=== PATIENT | female | born 1940 | race Caucasian/White ===

== ENCOUNTER 2022-06-21 15:11 | Inpatient (IN) | payer OTHER ==
[2022-06-21 21:52] LABS: BASO % 0.8 % (0-2.0); EOS % 0.9 % (0-4.5); HEMATOCRIT 37.3 % (32.4-45.2); HEMOGLOBIN 12.3 GM/dL (10.7-15.3); LYMPH % 15.2 % (8-40); MCH 28.7 pg (25.7-33.7); MCHC 33.1 g/dl (32.0-36.0); MEAN CELL VOLUME 86.8 fl (80-96); MEAN PLT VOLUME 8.9 fl (7.5-11.1); MONO % 9.6 % (3.8-10.2); NEUT % 73.5 % (42.8-82.8); PLATELET COUNT 179 10^3/uL (134-434); RDW 14.8 % (11.6-15.6)
[2022-06-21 22:07] LABS: CALCIUM 9.5 mg/dL (8.5-10.1)
[2022-06-21 22:08] LABS: ALBUMIN 3.4 g/dl (3.4-5.0); BLOOD UREA NITROGEN 19.8 mg/dL (7-18)
[2022-06-21 22:11] LABS: CREATININE 0.6 mg/dL (0.55-1.3)
[2022-06-21 22:12] LABS: BILIRUBIN,TOTAL 0.4 mg/dL (0.2-1); TOT PROT 6.2 g/dl (6.4-8.2)
[2022-06-22 03:25] VITALS: BMI 18.0
[2022-06-22] MEDS: INSULIN SLIDING SCALE (NOVOLOG) 1 VIAL SQ SCH ×4 (06:28→21:54)
[2022-06-22] MEDS: LEVOTHYROXINE NA 50 MCG TABLET (FP) PO SCH (06:28)
[2022-06-22] MEDS ORDERED: ALBUTEROL SO4 HFA INHALER IH PRN (08:34)
[2022-06-22] MEDS ORDERED: guaiFENesin/D-M SUGAR-FREE/ACLHOL-FREE 118 ML BOTTLE PO PRN (08:34)
[2022-06-22 09:30] LABS: BASO % 0.4 % (0-2.0); EOS % 1.2 % (0-4.5); HEMOGLOBIN 11.6 GM/dL (10.7-15.3); LYMPH % 15.8 % (8-40); MCH 28.4 pg (25.7-33.7); MCHC 32.3 g/dl (32.0-36.0); MEAN CELL VOLUME 88.1 fl (80-96); NEUT % 72.6 % (42.8-82.8); PLATELET COUNT 181 10^3/uL (134-434); RBC 4.09 M/mm3 (3.60-5.2); RDW 14.5 % (11.6-15.6); WHITE BLOOD COUNT 5.1 K/mm3 (4.0-10.0)
[2022-06-22 09:40] LABS: ACTIVATED PTT 29.7 SECONDS (25.2-36.5)
[2022-06-22 09:55] LABS: BLOOD UREA NITROGEN 24.8 mg/dL (7-18); CALCIUM 9.2 mg/dL (8.5-10.1); MAGNESIUM 1.6 mg/dL (1.8-2.4)
[2022-06-22 09:58] LABS: CREATININE 0.5 mg/dL (0.55-1.3); PHOSPHOROUS 2.7 mg/dL (2.5-4.9)
[2022-06-22 10:23] LABS: INR 1.17 (0.83-1.09); PROTHROMBIN TIME (PATIENT) 13.5 SEC (9.7-13.0)
[2022-06-22] MEDS: DOCUSATE SODIUM 100 MG CAPSULE (FP) PO SCH ×2 (10:56→21:47)
[2022-06-22] MEDS: MULTIVITAMINS (DAILY MVI) TABLET (FP) PO SCH (10:56)
[2022-06-22] MEDS: ASCORBIC ACID 500 MG TABLET (FP) PO SCH (10:56)
[2022-06-22] MEDS: FLUoxetine HCL 10 MG CAPSULE PO SCH (10:57)
[2022-06-22] MEDS: FERROUS SO4 325 MG TABLET (FP) PO SCH (10:57)
[2022-06-22] MEDS: ENALAPRIL MALEATE 10 MG TABLET PO SCH (10:57)
[2022-06-22] MEDS: SENNOSIDES 8.6MG TABLET (FP) PO SCH (10:57)
[2022-06-22] MEDS: ENOXAPARIN NA (PORCINE) 40 MG/0.4 ML DISP.SYRIN SQ SCH (10:57)
[2022-06-22] MEDS: PANTOPRAZOLE 20 MG TABLET PO SCH (10:57)
[2022-06-22] MEDS ORDERED: REMDESIVIR 200 MG in SODIUM CHLORIDE 250 ML IVPB ONE (11:00)
[2022-06-22] MEDS: FOLIC ACID 1 MG TABLET (FP) PO SCH (11:03)
[2022-06-22] MEDS: DEXAMETHASONE SOD PHOSPHATE 10 MG/1 ML VIAL IVPUSH SCH (11:04)
[2022-06-22] MEDS: CINACALCET HCL 30 MG TAB (FP) PO SCH (14:23)
[2022-06-22] MEDS: ATORVASTATIN CA 10 MG TABLET (FP) PO SCH (21:47)
[2022-06-23] MEDS: LEVOTHYROXINE NA 50 MCG TABLET (FP) PO SCH (06:20)
[2022-06-23] MEDS: INSULIN SLIDING SCALE (NOVOLOG) 1 VIAL SQ SCH ×4 (06:27→22:31)
[2022-06-23] MEDS: ENALAPRIL MALEATE 10 MG TABLET PO SCH (11:04)
[2022-06-23] MEDS: SENNOSIDES 8.6MG TABLET (FP) PO SCH (11:04)
[2022-06-23] MEDS: ASCORBIC ACID 500 MG TABLET (FP) PO SCH (11:04)
[2022-06-23] MEDS: DOCUSATE SODIUM 100 MG CAPSULE (FP) PO SCH ×2 (11:04→22:24)
[2022-06-23] MEDS: PANTOPRAZOLE 20 MG TABLET PO SCH (11:04)
[2022-06-23] MEDS: FERROUS SO4 325 MG TABLET (FP) PO SCH (11:04)
[2022-06-23] MEDS: MULTIVITAMINS (DAILY MVI) TABLET (FP) PO SCH (11:04)
[2022-06-23] MEDS: FOLIC ACID 1 MG TABLET (FP) PO SCH (11:04)
[2022-06-23] MEDS: ENOXAPARIN NA (PORCINE) 40 MG/0.4 ML DISP.SYRIN SQ SCH (11:05)
[2022-06-23] MEDS: FLUoxetine HCL 10 MG CAPSULE PO SCH (11:05)
[2022-06-23] MEDS: DEXAMETHASONE SOD PHOSPHATE 10 MG/1 ML VIAL IVPUSH SCH (11:05)
[2022-06-23] MEDS: CINACALCET HCL 30 MG TAB (FP) PO SCH (11:06)
[2022-06-23] MEDS: REMDESIVIR 100 MG in SODIUM CHLORIDE 250 ML IVPB SCH (11:06)
[2022-06-23] MEDS: ATORVASTATIN CA 10 MG TABLET (FP) PO SCH (22:24)
[2022-06-24] MEDS: LEVOTHYROXINE NA 50 MCG TABLET (FP) PO SCH (07:39)
[2022-06-24] MEDS: INSULIN SLIDING SCALE (NOVOLOG) 1 VIAL SQ SCH ×4 (07:44→23:42)
[2022-06-24] MEDS: FOLIC ACID 1 MG TABLET (FP) PO SCH (11:33)
[2022-06-24] MEDS: SENNOSIDES 8.6MG TABLET (FP) PO SCH (11:33)
[2022-06-24] MEDS: DOCUSATE SODIUM 100 MG CAPSULE (FP) PO SCH ×2 (11:33→23:15)
[2022-06-24] MEDS: PANTOPRAZOLE 20 MG TABLET PO SCH (11:34)
[2022-06-24] MEDS: MULTIVITAMINS (DAILY MVI) TABLET (FP) PO SCH (11:34)
[2022-06-24] MEDS: ENALAPRIL MALEATE 10 MG TABLET PO SCH (11:34)
[2022-06-24] MEDS: DEXAMETHASONE SOD PHOSPHATE 10 MG/1 ML VIAL IVPUSH SCH (11:36)
[2022-06-24] MEDS: FERROUS SO4 325 MG TABLET (FP) PO SCH (11:36)
[2022-06-24] MEDS: ENOXAPARIN NA (PORCINE) 40 MG/0.4 ML DISP.SYRIN SQ SCH (11:54)
[2022-06-24] MEDS: FLUoxetine HCL 10 MG CAPSULE PO SCH (12:04)
[2022-06-24] MEDS: ASCORBIC ACID 500 MG TABLET (FP) PO SCH (12:24)
[2022-06-24] MEDS: CINACALCET HCL 30 MG TAB (FP) PO SCH (12:25)
[2022-06-24] MEDS: REMDESIVIR 100 MG in SODIUM CHLORIDE 250 ML IVPB SCH (12:29)
[2022-06-24 13:27] LABS: BASO % 0.4 % (0-2.0); EOS % 1.8 % (0-4.5); HEMATOCRIT 37.7 % (32.4-45.2); HEMOGLOBIN 12.2 GM/dL (10.7-15.3); MCH 28.1 pg (25.7-33.7); MCHC 32.3 g/dl (32.0-36.0); MEAN PLT VOLUME 8.9 fl (7.5-11.1); MONO % 9.7 % (3.8-10.2); NEUT % 64.1 % (42.8-82.8); PLATELET COUNT 233 10^3/uL (134-434); RBC 4.34 M/mm3 (3.60-5.2); RDW 14.4 % (11.6-15.6); WHITE BLOOD COUNT 5.6 K/mm3 (4.0-10.0)
[2022-06-24 13:47] LABS: BLOOD UREA NITROGEN 21.9 mg/dL (7-18); CALCIUM 9.7 mg/dL (8.5-10.1)
[2022-06-24 13:50] LABS: CREATININE 0.5 mg/dL (0.55-1.3)
[2022-06-24] MEDS: ATORVASTATIN CA 10 MG TABLET (FP) PO SCH (23:15)
[2022-06-25] MEDS: INSULIN SLIDING SCALE (NOVOLOG) 1 VIAL SQ SCH ×4 (06:58→23:42)
[2022-06-25] MEDS: LEVOTHYROXINE NA 50 MCG TABLET (FP) PO SCH (06:59)
[2022-06-25 09:43] LABS: BASO % 0.4 % (0-2.0); EOS % 1.2 % (0-4.5); HEMATOCRIT 37.9 % (32.4-45.2); HEMOGLOBIN 12.2 GM/dL (10.7-15.3); LYMPH % 29.8 % (8-40); MCH 27.8 pg (25.7-33.7); MCHC 32.3 g/dl (32.0-36.0); MEAN CELL VOLUME 86.1 fl (80-96); MEAN PLT VOLUME 8.6 fl (7.5-11.1); MONO % 9.9 % (3.8-10.2); NEUT % 58.7 % (42.8-82.8); PLATELET COUNT 250 10^3/uL (134-434); RBC 4.39 M/mm3 (3.60-5.2); RDW 14.4 % (11.6-15.6); WHITE BLOOD COUNT 5.8 K/mm3 (4.0-10.0)
[2022-06-25 09:51] LABS: BLOOD UREA NITROGEN 22.4 mg/dL (7-18); CALCIUM 9.6 mg/dL (8.5-10.1)
[2022-06-25 09:54] LABS: CREATININE 0.5 mg/dL (0.55-1.3)
[2022-06-25] MEDS: ENOXAPARIN NA (PORCINE) 40 MG/0.4 ML DISP.SYRIN SQ SCH (10:41)
[2022-06-25] MEDS: DEXAMETHASONE SOD PHOSPHATE 10 MG/1 ML VIAL IVPUSH SCH (10:41)
[2022-06-25] MEDS: ENALAPRIL MALEATE 10 MG TABLET PO SCH (10:42)
[2022-06-25] MEDS: DOCUSATE SODIUM 100 MG CAPSULE (FP) PO SCH ×2 (10:42→23:41)
[2022-06-25] MEDS: FERROUS SO4 325 MG TABLET (FP) PO SCH (10:42)
[2022-06-25] MEDS: PANTOPRAZOLE 20 MG TABLET PO SCH (10:42)
[2022-06-25] MEDS: FOLIC ACID 1 MG TABLET (FP) PO SCH (10:42)
[2022-06-25] MEDS: ASCORBIC ACID 500 MG TABLET (FP) PO SCH (10:42)
[2022-06-25] MEDS: SENNOSIDES 8.6MG TABLET (FP) PO SCH (10:42)
[2022-06-25] MEDS: MULTIVITAMINS (DAILY MVI) TABLET (FP) PO SCH (10:42)
[2022-06-25] MEDS: FLUoxetine HCL 10 MG CAPSULE PO SCH (10:43)
[2022-06-25] MEDS: REMDESIVIR 100 MG in SODIUM CHLORIDE 250 ML IVPB SCH (10:44)
[2022-06-25] MEDS: CINACALCET HCL 30 MG TAB (FP) PO SCH (10:44)
[2022-06-25] MEDS: ATORVASTATIN CA 10 MG TABLET (FP) PO SCH (23:42)
[2022-06-26] MEDS: LEVOTHYROXINE NA 50 MCG TABLET (FP) PO SCH (08:31)
[2022-06-26] MEDS: INSULIN SLIDING SCALE (NOVOLOG) 1 VIAL SQ SCH ×4 (08:31→21:27)
[2022-06-26] MEDS: PANTOPRAZOLE 20 MG TABLET PO SCH (09:48)
[2022-06-26] MEDS: SENNOSIDES 8.6MG TABLET (FP) PO SCH (09:48)
[2022-06-26] MEDS: DOCUSATE SODIUM 100 MG CAPSULE (FP) PO SCH ×2 (09:48→21:23)
[2022-06-26] MEDS: FLUoxetine HCL 10 MG CAPSULE PO SCH (09:48)
[2022-06-26] MEDS: ASCORBIC ACID 500 MG TABLET (FP) PO SCH (09:48)
[2022-06-26] MEDS: ENOXAPARIN NA (PORCINE) 40 MG/0.4 ML DISP.SYRIN SQ SCH (09:49)
[2022-06-26] MEDS: DEXAMETHASONE SOD PHOSPHATE 10 MG/1 ML VIAL IVPUSH SCH (09:49)
[2022-06-26] MEDS: FOLIC ACID 1 MG TABLET (FP) PO SCH (09:49)
[2022-06-26] MEDS: ENALAPRIL MALEATE 10 MG TABLET PO SCH (09:49)
[2022-06-26] MEDS: MULTIVITAMINS (DAILY MVI) TABLET (FP) PO SCH (09:49)
[2022-06-26] MEDS: CINACALCET HCL 30 MG TAB (FP) PO SCH (09:49)
[2022-06-26] MEDS: FERROUS SO4 325 MG TABLET (FP) PO SCH (09:49)
[2022-06-26 10:40] LABS: BASO % 0.5 % (0-2.0); EOS % 1.5 % (0-4.5); HEMATOCRIT 36.3 % (32.4-45.2); HEMOGLOBIN 12.2 GM/dL (10.7-15.3); LYMPH % 28.4 % (8-40); MCH 29.1 pg (25.7-33.7); MCHC 33.7 g/dl (32.0-36.0); MEAN CELL VOLUME 86.2 fl (80-96); MEAN PLT VOLUME 8.2 fl (7.5-11.1); MONO % 10.1 % (3.8-10.2); NEUT % 59.5 % (42.8-82.8); PLATELET COUNT 235 10^3/uL (134-434); RBC 4.21 M/mm3 (3.60-5.2); RDW 14.4 % (11.6-15.6); WHITE BLOOD COUNT 4.9 K/mm3 (4.0-10.0)
[2022-06-26 10:58] LABS: CALCIUM 9.6 mg/dL (8.5-10.1)
[2022-06-26 10:59] LABS: BLOOD UREA NITROGEN 18.4 mg/dL (7-18)
[2022-06-26 11:02] LABS: CREATININE 0.5 mg/dL (0.55-1.3)
[2022-06-26] MEDS: REMDESIVIR 100 MG in SODIUM CHLORIDE 250 ML IVPB SCH (11:32)
[2022-06-26] MEDS: ATORVASTATIN CA 10 MG TABLET (FP) PO SCH (21:23)
[2022-06-27] MEDS: LEVOTHYROXINE NA 50 MCG TABLET (FP) PO SCH (06:15)
[2022-06-27] MEDS: INSULIN SLIDING SCALE (NOVOLOG) 1 VIAL SQ SCH ×4 (06:18→21:47)
[2022-06-27] MEDS: ASCORBIC ACID 500 MG TABLET (FP) PO SCH (09:59)
[2022-06-27] MEDS: ENALAPRIL MALEATE 10 MG TABLET PO SCH (09:59)
[2022-06-27] MEDS: SENNOSIDES 8.6MG TABLET (FP) PO SCH (09:59)
[2022-06-27] MEDS: MULTIVITAMINS (DAILY MVI) TABLET (FP) PO SCH (09:59)
[2022-06-27] MEDS: FLUoxetine HCL 10 MG CAPSULE PO SCH (10:00)
[2022-06-27] MEDS: FOLIC ACID 1 MG TABLET (FP) PO SCH (10:00)
[2022-06-27] MEDS: PANTOPRAZOLE 20 MG TABLET PO SCH (10:00)
[2022-06-27] MEDS: FERROUS SO4 325 MG TABLET (FP) PO SCH (10:00)
[2022-06-27] MEDS: DOCUSATE SODIUM 100 MG CAPSULE (FP) PO SCH ×2 (10:00→21:41)
[2022-06-27] MEDS: DEXAMETHASONE SOD PHOSPHATE 10 MG/1 ML VIAL IVPUSH SCH (10:00)
[2022-06-27] MEDS: ENOXAPARIN NA (PORCINE) 40 MG/0.4 ML DISP.SYRIN SQ SCH (10:00)
[2022-06-27] MEDS: CINACALCET HCL 30 MG TAB (FP) PO SCH (10:01)
[2022-06-27] MEDS: ATORVASTATIN CA 10 MG TABLET (FP) PO SCH (21:41)
[2022-06-28 04:09] VITALS: RESP 18
[2022-06-28] MEDS: INSULIN SLIDING SCALE (NOVOLOG) 1 VIAL SQ SCH ×3 (06:16→17:25)
[2022-06-28] MEDS: LEVOTHYROXINE NA 50 MCG TABLET (FP) PO SCH (06:19)
[2022-06-28] MEDS: SENNOSIDES 8.6MG TABLET (FP) PO SCH (10:36)
[2022-06-28] MEDS: DOCUSATE SODIUM 100 MG CAPSULE (FP) PO SCH (10:36)
[2022-06-28] MEDS: PANTOPRAZOLE 20 MG TABLET PO SCH (10:36)
[2022-06-28] MEDS: ENOXAPARIN NA (PORCINE) 40 MG/0.4 ML DISP.SYRIN SQ SCH (10:36)
[2022-06-28] MEDS: CINACALCET HCL 30 MG TAB (FP) PO SCH (10:36)
[2022-06-28] MEDS: MULTIVITAMINS (DAILY MVI) TABLET (FP) PO SCH (10:37)
[2022-06-28] MEDS: ASCORBIC ACID 500 MG TABLET (FP) PO SCH (10:37)
[2022-06-28] MEDS: FERROUS SO4 325 MG TABLET (FP) PO SCH (10:37)
[2022-06-28] MEDS: FOLIC ACID 1 MG TABLET (FP) PO SCH (10:37)
[2022-06-28] MEDS: ENALAPRIL MALEATE 10 MG TABLET PO SCH (10:37)
[2022-06-28] MEDS: FLUoxetine HCL 10 MG CAPSULE PO SCH (15:59)
[2022-06-28 18:11] VITALS: BP 123/61; PULSE 71; TEMP 98.4
== END 2022-06-28 18:19 | DRG 179 ==
LOC: JER 15:11 → JERBED 20:42 → J8W 06-22 01:50 → J5S 06-27 15:50
PROVIDERS: ADMIT Internal Medicine; ATTEND Internal Medicine
PROC: XW033E5 Introduction of Remdesivir Anti-infective into Peripheral Vein, Percutaneous Approach, New Technology Group 5 (ICD-10-PCS; principal; 2022-06-22)
PROC: 3E0333Z Introduction of Anti-inflammatory into Peripheral Vein, Percutaneous Approach (ICD-10-PCS; 2022-06-22)
DX: U07.1 COVID-19 (principal); I10 Essential (primary) hypertension; E11.9 Type 2 diabetes mellitus without complications; K21.9 Gastro-esophageal reflux disease without esophagitis; E78.5 Hyperlipidemia, unspecified; F03.90 Unspecified dementia, unspecified severity, without behavioral disturbance, psychotic disturbance, mood disturbance, and anxiety; E03.9 Hypothyroidism, unspecified; R91.8 Other nonspecific abnormal finding of lung field; D50.9 Iron deficiency anemia, unspecified; E53.8 Deficiency of other specified B group vitamins; F32.A Depression, unspecified; K59.00 Constipation, unspecified; R09.02 Hypoxemia
CPT/HCPCS: 0241U-QW; 36415; 71045-TC-FY; 71250-TC; 74178-TC; 80048; 80053; 82962; 83735; 84100; 84443; 85025; 85610; 85730; 93005; 93010; 97116-GP; 99285-25; C9399; C9803-CS; J1100; Q9967; U0003; U0005

== ENCOUNTER 2022-07-03 13:09 | Inpatient (IN) | payer OTHER ==
[2022-07-03 16:17] LABS: HEMATOCRIT 37.2 % (32.4-45.2); HEMOGLOBIN 12.3 GM/dL (10.7-15.3); MCH 28.9 pg (25.7-33.7); MEAN CELL VOLUME 87.6 fl (80-96); MEAN PLT VOLUME 8.4 fl (7.5-11.1); PLATELET COUNT 217 10^3/uL (134-434); RBC 4.25 M/mm3 (3.60-5.2); RDW 15.2 % (11.6-15.6); WHITE BLOOD COUNT 19.7 K/mm3 (4.0-10.0)
[2022-07-03 16:37] LABS: ALBUMIN 3.4 g/dl (3.4-5.0); CALCIUM 10.2 mg/dL (8.5-10.1)
[2022-07-03 16:41] LABS: CREATININE 0.5 mg/dL (0.55-1.3)
[2022-07-03 16:42] LABS: BILIRUBIN,TOTAL 0.6 mg/dL (0.2-1); TOT PROT 6.1 g/dl (6.4-8.2)
[2022-07-03 17:21] LABS: ANISOCYTOSIS 0; MACROCYTOSIS 0; PLATELET ESTIMATE NORMAL
[2022-07-03 18:37] LABS: EPI CELLS 6 /uL (0-25.1); HYALINE CASTS 1 /uL (0-3.1); URINE APPEARANCE CLEAR; URINE BACTERIA 13 /uL (0-1359); URINE BILIRUBIN NEGATIVE (NEGATIVE); URINE COLOR YELLOW; URINE GLUCOSE (UA) NEGATIVE (NEGATIVE); URINE KETONE TRACE (NEGATIVE); URINE LEUK ESTERASE 1+ (NEGATIVE); URINE NITRITE NEGATIVE (NEGATIVE); URINE PROTEIN NEGATIVE (NEGATIVE); URINE RBC 11 /uL (0-23.9); URINE WBC 42 /uL (0-25.8)
[2022-07-03] MEDS ORDERED: CEFTRIAXONE 1 GM/50 ML BAG ONE (19:47)
[2022-07-03] MEDS ORDERED: SODIUM CHLORIDE 0.9% 500 ML INFUS.BAG IV ONE (20:19)
[2022-07-05] MEDS ORDERED: guaiFENesin/D-M SUGAR-FREE/ACLHOL-FREE 118 ML BOTTLE PO PRN (14:43)
[2022-07-05] MEDS ORDERED: ALBUTEROL SO4 HFA INHALER IH PRN (14:43)
[2022-07-05 16:00] VITALS: BMI 18.0
[2022-07-05] MEDS: metFORMIN HCL 500 MG TABLET (FP) PO SCH (17:29)
[2022-07-05] MEDS: INSULIN SLIDING SCALE (NOVOLOG) 1 VIAL SQ SCH (19:32)
[2022-07-05 20:20] LABS: BASO % 0.6 % (0-2.0); EOS % 0.8 % (0-4.5); LYMPH % 8.4 % (8-40); MCH 28.9 pg (25.7-33.7); MCHC 33.3 g/dl (32.0-36.0); MEAN CELL VOLUME 86.9 fl (80-96); MEAN PLT VOLUME 8.7 fl (7.5-11.1); MONO % 9.3 % (3.8-10.2); NEUT % 80.9 % (42.8-82.8); PLATELET COUNT 250 10^3/uL (134-434); RBC 4.49 M/mm3 (3.60-5.2); RDW 15.2 % (11.6-15.6); WHITE BLOOD COUNT 12.7 K/mm3 (4.0-10.0)
[2022-07-05] MEDS: ATORVASTATIN CA 10 MG TABLET (FP) PO SCH (22:08)
[2022-07-05] MEDS: HEPARIN NA (PORCINE) 5,000 UNITS/ML 1ML VIAL SQ SCH (22:08)
[2022-07-05] MEDS: DOCUSATE SODIUM 100 MG CAPSULE (FP) PO SCH (22:08)
[2022-07-05] MEDS: ACETAMINOPHEN 325 MG TABLET (FP) PO PRN (22:09)
[2022-07-06] MEDS: metFORMIN HCL 500 MG TABLET (FP) PO SCH ×2 (06:25→16:45)
[2022-07-06] MEDS: INSULIN SLIDING SCALE (NOVOLOG) 1 VIAL SQ SCH ×2 (06:25→16:45)
[2022-07-06] MEDS: LEVOTHYROXINE NA 50 MCG TABLET (FP) PO SCH (06:25)
[2022-07-06] MEDS: sitaGLIPtin PHOSPHATE 50 MG TABLET PO SCH (06:25)
[2022-07-06] MEDS: FLUoxetine HCL 10 MG CAPSULE PO SCH (10:09)
[2022-07-06] MEDS: DOCUSATE SODIUM 100 MG CAPSULE (FP) PO SCH ×2 (10:09→22:13)
[2022-07-06] MEDS: SENNOSIDES 8.6MG TABLET (FP) PO SCH (10:09)
[2022-07-06] MEDS: ASCORBIC ACID 500 MG TABLET (FP) PO SCH (10:09)
[2022-07-06] MEDS: PANTOPRAZOLE 20 MG TABLET PO SCH (10:09)
[2022-07-06] MEDS: FERROUS SO4 325 MG TABLET (FP) PO SCH (10:09)
[2022-07-06] MEDS: HEPARIN NA (PORCINE) 5,000 UNITS/ML 1ML VIAL SQ SCH ×2 (10:09→22:13)
[2022-07-06] MEDS: MULTIVITAMINS (DAILY MVI) TABLET (FP) PO SCH (10:09)
[2022-07-06] MEDS: FOLIC ACID 1 MG TABLET (FP) PO SCH (10:09)
[2022-07-06] MEDS: ENALAPRIL MALEATE 10 MG TABLET PO SCH (10:10)
[2022-07-06] MEDS: CINACALCET HCL 30 MG TAB (FP) PO SCH (10:16)
[2022-07-06 12:39] LABS: MAGNESIUM 2.1 mg/dL (1.8-2.4)
[2022-07-06 12:43] LABS: PHOSPHOROUS 3.2 mg/dL (2.5-4.9)
[2022-07-06 12:47] LABS: N-TERMINAL BNP 159.5 pg/ml (5-450)
[2022-07-06] MEDS: ATORVASTATIN CA 10 MG TABLET (FP) PO SCH (22:13)
[2022-07-07] MEDS: metFORMIN HCL 500 MG TABLET (FP) PO SCH ×2 (06:37→16:52)
[2022-07-07] MEDS: LEVOTHYROXINE NA 50 MCG TABLET (FP) PO SCH (06:37)
[2022-07-07] MEDS: sitaGLIPtin PHOSPHATE 50 MG TABLET PO SCH (06:37)
[2022-07-07] MEDS: INSULIN SLIDING SCALE (NOVOLOG) 1 VIAL SQ SCH ×2 (06:38→16:52)
[2022-07-07] MEDS: PANTOPRAZOLE 20 MG TABLET PO SCH (10:19)
[2022-07-07] MEDS: FLUoxetine HCL 10 MG CAPSULE PO SCH (10:19)
[2022-07-07] MEDS: ENALAPRIL MALEATE 10 MG TABLET PO SCH (10:19)
[2022-07-07] MEDS: FERROUS SO4 325 MG TABLET (FP) PO SCH (10:19)
[2022-07-07] MEDS: SENNOSIDES 8.6MG TABLET (FP) PO SCH (10:19)
[2022-07-07] MEDS: DOCUSATE SODIUM 100 MG CAPSULE (FP) PO SCH ×2 (10:19→22:14)
[2022-07-07] MEDS: CINACALCET HCL 30 MG TAB (FP) PO SCH (10:19)
[2022-07-07] MEDS: ASCORBIC ACID 500 MG TABLET (FP) PO SCH (10:19)
[2022-07-07] MEDS: MULTIVITAMINS (DAILY MVI) TABLET (FP) PO SCH (10:19)
[2022-07-07] MEDS: FOLIC ACID 1 MG TABLET (FP) PO SCH (10:20)
[2022-07-07] MEDS: HEPARIN NA (PORCINE) 5,000 UNITS/ML 1ML VIAL SQ SCH ×2 (10:20→22:14)
[2022-07-07] MEDS: ACETAMINOPHEN 325 MG TABLET (FP) PO PRN (10:20)
[2022-07-07 10:34] LABS: BASO % 0.4 % (0-2.0); EOS % 1.2 % (0-4.5); HEMOGLOBIN 12.8 GM/dL (10.7-15.3); LYMPH % 8.8 % (8-40); MCH 28.7 pg (25.7-33.7); MCHC 32.7 g/dl (32.0-36.0); MEAN CELL VOLUME 87.7 fl (80-96); MEAN PLT VOLUME 9.5 fl (7.5-11.1); MONO % 7.5 % (3.8-10.2); NEUT % 82.1 % (42.8-82.8); PLATELET COUNT 235 10^3/uL (134-434); RBC 4.45 M/mm3 (3.60-5.2); RDW 15.2 % (11.6-15.6); WHITE BLOOD COUNT 8.9 K/mm3 (4.0-10.0)
[2022-07-07 10:56] LABS: CALCIUM 10.8 mg/dL (8.5-10.1)
[2022-07-07 10:58] LABS: ALBUMIN 3.2 g/dl (3.4-5.0); BLOOD UREA NITROGEN 30.3 mg/dL (7-18)
[2022-07-07 11:00] LABS: CREATININE 0.5 mg/dL (0.55-1.3)
[2022-07-07 11:02] LABS: BILIRUBIN,TOTAL 0.6 mg/dL (0.2-1)
[2022-07-07] MEDS: ATORVASTATIN CA 10 MG TABLET (FP) PO SCH (22:14)
[2022-07-08] MEDS: INSULIN SLIDING SCALE (NOVOLOG) 1 VIAL SQ SCH ×2 (06:08→17:32)
[2022-07-08] MEDS: LEVOTHYROXINE NA 50 MCG TABLET (FP) PO SCH (06:08)
[2022-07-08] MEDS: metFORMIN HCL 500 MG TABLET (FP) PO SCH ×2 (06:08→17:33)
[2022-07-08] MEDS: sitaGLIPtin PHOSPHATE 50 MG TABLET PO SCH (06:08)
[2022-07-08] MEDS: FOLIC ACID 1 MG TABLET (FP) PO SCH (09:07)
[2022-07-08] MEDS: FLUoxetine HCL 10 MG CAPSULE PO SCH (09:07)
[2022-07-08] MEDS: MULTIVITAMINS (DAILY MVI) TABLET (FP) PO SCH (09:07)
[2022-07-08] MEDS: ENALAPRIL MALEATE 10 MG TABLET PO SCH (09:07)
[2022-07-08] MEDS: CINACALCET HCL 30 MG TAB (FP) PO SCH (09:07)
[2022-07-08] MEDS: DOCUSATE SODIUM 100 MG CAPSULE (FP) PO SCH ×2 (09:07→21:31)
[2022-07-08] MEDS: PANTOPRAZOLE 20 MG TABLET PO SCH (09:07)
[2022-07-08] MEDS: ASCORBIC ACID 500 MG TABLET (FP) PO SCH (09:07)
[2022-07-08] MEDS: SENNOSIDES 8.6MG TABLET (FP) PO SCH (09:07)
[2022-07-08] MEDS: FERROUS SO4 325 MG TABLET (FP) PO SCH (09:08)
[2022-07-08] MEDS: HEPARIN NA (PORCINE) 5,000 UNITS/ML 1ML VIAL SQ SCH ×2 (09:08→21:32)
[2022-07-08] MEDS: ATORVASTATIN CA 10 MG TABLET (FP) PO SCH (21:31)
[2022-07-09] MEDS: ACETAMINOPHEN 325 MG TABLET (FP) PO PRN (01:53)
[2022-07-09] MEDS: INSULIN SLIDING SCALE (NOVOLOG) 1 VIAL SQ SCH ×2 (06:10→18:03)
[2022-07-09] MEDS: metFORMIN HCL 500 MG TABLET (FP) PO SCH ×2 (06:27→18:14)
[2022-07-09] MEDS: LEVOTHYROXINE NA 50 MCG TABLET (FP) PO SCH (06:27)
[2022-07-09] MEDS: sitaGLIPtin PHOSPHATE 50 MG TABLET PO SCH (06:27)
[2022-07-09] MEDS: SENNOSIDES 8.6MG TABLET (FP) PO SCH (09:25)
[2022-07-09] MEDS: MULTIVITAMINS (DAILY MVI) TABLET (FP) PO SCH (09:26)
[2022-07-09] MEDS: ASCORBIC ACID 500 MG TABLET (FP) PO SCH (09:26)
[2022-07-09] MEDS: HEPARIN NA (PORCINE) 5,000 UNITS/ML 1ML VIAL SQ SCH ×2 (09:26→21:11)
[2022-07-09] MEDS: CINACALCET HCL 30 MG TAB (FP) PO SCH (09:26)
[2022-07-09] MEDS: FOLIC ACID 1 MG TABLET (FP) PO SCH (09:26)
[2022-07-09] MEDS: FERROUS SO4 325 MG TABLET (FP) PO SCH (09:26)
[2022-07-09] MEDS: PANTOPRAZOLE 20 MG TABLET PO SCH (09:26)
[2022-07-09] MEDS: DOCUSATE SODIUM 100 MG CAPSULE (FP) PO SCH ×2 (09:26→21:11)
[2022-07-09] MEDS: FLUoxetine HCL 10 MG CAPSULE PO SCH (09:26)
[2022-07-09] MEDS: ENALAPRIL MALEATE 10 MG TABLET PO SCH (09:26)
[2022-07-09] MEDS: ATORVASTATIN CA 10 MG TABLET (FP) PO SCH (21:11)
[2022-07-10] MEDS: LEVOTHYROXINE NA 50 MCG TABLET (FP) PO SCH (06:02)
[2022-07-10] MEDS: sitaGLIPtin PHOSPHATE 50 MG TABLET PO SCH (06:02)
[2022-07-10] MEDS: metFORMIN HCL 500 MG TABLET (FP) PO SCH ×2 (06:02→17:08)
[2022-07-10] MEDS: INSULIN SLIDING SCALE (NOVOLOG) 1 VIAL SQ SCH ×2 (06:12→18:13)
[2022-07-10 09:47] VITALS: RESP 18
[2022-07-10] MEDS: SENNOSIDES 8.6MG TABLET (FP) PO SCH (10:19)
[2022-07-10] MEDS: ENALAPRIL MALEATE 10 MG TABLET PO SCH (10:19)
[2022-07-10] MEDS: FOLIC ACID 1 MG TABLET (FP) PO SCH (10:19)
[2022-07-10] MEDS: HEPARIN NA (PORCINE) 5,000 UNITS/ML 1ML VIAL SQ SCH ×2 (10:19→21:37)
[2022-07-10] MEDS: FERROUS SO4 325 MG TABLET (FP) PO SCH (10:19)
[2022-07-10] MEDS: DOCUSATE SODIUM 100 MG CAPSULE (FP) PO SCH ×2 (10:20→21:38)
[2022-07-10] MEDS: PANTOPRAZOLE 20 MG TABLET PO SCH (10:20)
[2022-07-10] MEDS: ASCORBIC ACID 500 MG TABLET (FP) PO SCH (10:20)
[2022-07-10] MEDS: CINACALCET HCL 30 MG TAB (FP) PO SCH (10:20)
[2022-07-10] MEDS: MULTIVITAMINS (DAILY MVI) TABLET (FP) PO SCH (10:20)
[2022-07-10] MEDS: FLUoxetine HCL 10 MG CAPSULE PO SCH (10:21)
[2022-07-10 10:46] LABS: BASO % 0.8 % (0-2.0); EOS % 2.1 % (0-4.5); HEMATOCRIT 35.7 % (32.4-45.2); HEMOGLOBIN 11.6 GM/dL (10.7-15.3); LYMPH % 16.1 % (8-40); MCH 28.5 pg (25.7-33.7); MCHC 32.5 g/dl (32.0-36.0); MEAN CELL VOLUME 87.7 fl (80-96); MEAN PLT VOLUME 9.3 fl (7.5-11.1); MONO % 9.2 % (3.8-10.2); NEUT % 71.8 % (42.8-82.8); PLATELET COUNT 231 10^3/uL (134-434); RBC 4.07 M/mm3 (3.60-5.2); RDW 14.5 % (11.6-15.6); WHITE BLOOD COUNT 6.6 K/mm3 (4.0-10.0)
[2022-07-10 11:54] LABS: BLOOD UREA NITROGEN 20.5 mg/dL (7-18); CALCIUM 10.1 mg/dL (8.5-10.1)
[2022-07-10 11:56] LABS: CREATININE 0.6 mg/dL (0.55-1.3)
[2022-07-10] MEDS: ATORVASTATIN CA 10 MG TABLET (FP) PO SCH (21:38)
[2022-07-11] MEDS: INSULIN SLIDING SCALE (NOVOLOG) 1 VIAL SQ SCH ×2 (06:42→17:43)
[2022-07-11] MEDS: metFORMIN HCL 500 MG TABLET (FP) PO SCH ×2 (06:44→17:08)
[2022-07-11] MEDS: sitaGLIPtin PHOSPHATE 50 MG TABLET PO SCH (06:44)
[2022-07-11] MEDS: LEVOTHYROXINE NA 50 MCG TABLET (FP) PO SCH (06:44)
[2022-07-11] MEDS: HEPARIN NA (PORCINE) 5,000 UNITS/ML 1ML VIAL SQ SCH (09:31)
[2022-07-11] MEDS: FLUoxetine HCL 10 MG CAPSULE PO SCH (09:31)
[2022-07-11] MEDS: FERROUS SO4 325 MG TABLET (FP) PO SCH (09:31)
[2022-07-11] MEDS: ENALAPRIL MALEATE 10 MG TABLET PO SCH (09:31)
[2022-07-11] MEDS: PANTOPRAZOLE 20 MG TABLET PO SCH (09:31)
[2022-07-11] MEDS: FOLIC ACID 1 MG TABLET (FP) PO SCH (09:31)
[2022-07-11] MEDS: SENNOSIDES 8.6MG TABLET (FP) PO SCH (09:31)
[2022-07-11] MEDS: ASCORBIC ACID 500 MG TABLET (FP) PO SCH (09:31)
[2022-07-11] MEDS: MULTIVITAMINS (DAILY MVI) TABLET (FP) PO SCH (09:31)
[2022-07-11] MEDS: CINACALCET HCL 30 MG TAB (FP) PO SCH (09:31)
[2022-07-11] MEDS: DOCUSATE SODIUM 100 MG CAPSULE (FP) PO SCH (09:31)
[2022-07-11 14:52] VITALS: BP 124/60; PULSE 76; TEMP 98
== END 2022-07-11 17:55 | DRG 180 ==
LOC: JER 13:09 → JERBED 20:29 → J4S 07-04 16:13 → OBSVTOIN 07-05 14:46 → J6S 07-06 21:32
PROVIDERS: ADMIT Family Medicine; ATTEND Internal Medicine
DX: D38.1 Neoplasm of uncertain behavior of trachea, bronchus and lung (principal); U07.1 COVID-19; R91.8 Other nonspecific abnormal finding of lung field; D72.829 Elevated white blood cell count, unspecified; E03.9 Hypothyroidism, unspecified; F03.90 Unspecified dementia, unspecified severity, without behavioral disturbance, psychotic disturbance, mood disturbance, and anxiety; E11.9 Type 2 diabetes mellitus without complications; F32.A Depression, unspecified; E78.5 Hyperlipidemia, unspecified
CPT/HCPCS: 0241U-QW; 36415; 71045-TC-FY; 71275-TC; 80048; 80053; 81003; 82962; 83735; 83880; 84100; 84484; 85025; 87086; 93005; 93010; 94761; 97116-GP; 97162-GP; 99285-25; C9803-CS; G0378; J1644; Q9967; U0003; U0005

== ENCOUNTER 2023-06-14 17:17 | Inpatient (IN) | payer OTHER ==
[2023-06-14 17:35] VITALS: BMI 18.0
[2023-06-14] MEDS ORDERED: SODIUM CHLORIDE 1,429 ML IV ONE (18:05)
[2023-06-14] MEDS ORDERED: ACETAMINOPHEN 1000 MG/100 ML BAG IVPB ONE (18:06)
[2023-06-14] MEDS ORDERED: SODIUM CHLORIDE 0.9% 500 ML INFUS.BAG IV ONE (18:07)
[2023-06-14] MEDS ORDERED: ACETAMINOPHEN INJECTION 100 ML IVPB ONE (18:27)
[2023-06-14 18:38] LABS: VENOUS BASE EXCESS 0.5 mmol/L (-2-2); VENOUS PCO2 37.6 mmHg (38-52); VENOUS PH 7.432 (7.310-7.410)
[2023-06-14 18:49] LABS: HEMATOCRIT 38.2 % (32.4-45.2); MEAN CELL VOLUME 85.1 fl (80-96); MEAN PLT VOLUME 8.7 fl (7.5-11.1); PLATELET COUNT 204 10^3/uL (134-434); RBC 4.49 M/mm3 (3.60-5.2); RDW 14.6 % (11.6-15.6); WHITE BLOOD COUNT 8.6 K/mm3 (4.0-10.0)
[2023-06-14 18:50] LABS: PH,URINE 5.5 (5.0-8.0); URINE APPEARANCE CLEAR; URINE BILIRUBIN NEGATIVE (NEGATIVE); URINE COLOR YELLOW; URINE GLUCOSE (UA) NEGATIVE (NEGATIVE); URINE KETONE 1+ (NEGATIVE); URINE LEUK ESTERASE NEGATIVE (NEGATIVE); URINE NITRITE NEGATIVE (NEGATIVE); URINE PROTEIN TRACE (NEGATIVE); URINE UROBILINOGEN 0.2 mg/dL (0.2-1.0)
[2023-06-14 18:51] LABS: INR 1.15 (0.83-1.09); PROTHROMBIN TIME (PATIENT) 13.3 SEC (9.7-13.0)
[2023-06-14 18:53] LABS: ACTIVATED PTT 29.4 SECONDS (25.2-36.5)
[2023-06-14] MEDS ORDERED: DEXAMETHASONE SOD PHOSPHATE 10 MG/1 ML VIAL IVPUSH ONE (18:53)
[2023-06-14 19:09] LABS: POTASSIUM 4.4 mmol/L (3.5-5.1)
[2023-06-14 19:10] LABS: ALBUMIN 3.7 g/dl (3.4-5.0); BLOOD UREA NITROGEN 18.6 mg/dL (7-18); CALCIUM 9.3 mg/dL (8.5-10.1)
[2023-06-14 19:14] LABS: CREATININE 0.7 mg/dL (0.55-1.3)
[2023-06-14 19:16] LABS: BILIRUBIN,TOTAL 0.4 mg/dL (0.2-1); TOT PROT 6.7 g/dl (6.4-8.2)
[2023-06-14] MEDS ORDERED: DEXAMETHASONE SOD PHOSPHATE 10 MG/1 ML VIAL ONE (19:16)
[2023-06-14 20:18] LABS: ANISOCYTOSIS 0; MACROCYTOSIS 0
[2023-06-14] MEDS ORDERED: ACETAMINOPHEN 325 MG TABLET (FP) PO PRN (22:26)
[2023-06-14] MEDS ORDERED: REMDESIVIR 200 MG in SODIUM CHLORIDE 250 ML IVPB ONE (23:30)
[2023-06-15] MEDS: INSULIN SLIDING SCALE (NOVOLOG) 1 VIAL SQ SCH ×4 (06:06→21:53)
[2023-06-15] MEDS ORDERED: ALBUTEROL SO4 HFA INHALER IH PRN (09:27)
[2023-06-15 10:19] LABS: BASO % 0.3 % (0-2.0); HEMATOCRIT 35.3 % (32.4-45.2); HEMOGLOBIN 11.6 GM/dL (10.7-15.3); LYMPH % 13.8 % (8-40); MCH 28.6 pg (25.7-33.7); MCHC 32.8 g/dl (32.0-36.0); MEAN CELL VOLUME 87.2 fl (80-96); MEAN PLT VOLUME 8.2 fl (7.5-11.1); MONO % 10.2 % (3.8-10.2); NEUT % 75.7 % (42.8-82.8); PLATELET COUNT 198 10^3/uL (134-434); RBC 4.05 M/mm3 (3.60-5.2); RDW 14.3 % (11.6-15.6); WHITE BLOOD COUNT 5.2 K/mm3 (4.0-10.0)
[2023-06-15] MEDS: DEXAMETHASONE 4 MG TABLET (FP) PO SCH (10:24)
[2023-06-15] MEDS: DOCUSATE SODIUM 100 MG CAPSULE (FP) PO SCH ×2 (10:24→21:35)
[2023-06-15] MEDS: ENOXAPARIN NA (PORCINE) 40 MG/0.4 ML DISP.SYRIN SQ SCH (10:25)
[2023-06-15] MEDS: PANTOPRAZOLE 20 MG TABLET PO SCH (10:25)
[2023-06-15 10:36] LABS: POTASSIUM 3.8 mmol/L (3.5-5.1)
[2023-06-15 10:41] LABS: BLOOD UREA NITROGEN 23.5 mg/dL (7-18); CALCIUM 8.3 mg/dL (8.5-10.1); MAGNESIUM 1.6 mg/dL (1.8-2.4)
[2023-06-15 10:45] LABS: CREATININE 0.6 mg/dL (0.55-1.3)
[2023-06-15] MEDS: ENALAPRIL MALEATE 10 MG TABLET PO SCH (11:28)
[2023-06-15] MEDS: FLUoxetine HCL 10 MG CAPSULE PO SCH (11:28)
[2023-06-15] MEDS ORDERED: REMDESIVIR 200 MG in SODIUM CHLORIDE 250 ML IVPB ONE (15:22)
[2023-06-15] MEDS: REMDESIVIR 100 MG in SODIUM CHLORIDE 250 ML IVPB SCH (18:19)
[2023-06-15] MEDS: ATORVASTATIN CA 10 MG TABLET (FP) PO SCH (21:35)
[2023-06-15] MEDS: QUEtiapine FUMARATE 25 MG TABLET PO SCH (21:35)
[2023-06-16] MEDS: INSULIN SLIDING SCALE (NOVOLOG) 1 VIAL SQ SCH ×4 (07:02→22:13)
[2023-06-16] MEDS: ENALAPRIL MALEATE 10 MG TABLET PO SCH (09:52)
[2023-06-16] MEDS: ENOXAPARIN NA (PORCINE) 40 MG/0.4 ML DISP.SYRIN SQ SCH (09:52)
[2023-06-16] MEDS: FLUoxetine HCL 10 MG CAPSULE PO SCH (09:52)
[2023-06-16] MEDS: DEXAMETHASONE 4 MG TABLET (FP) PO SCH (09:52)
[2023-06-16] MEDS: QUEtiapine FUMARATE 25 MG TABLET PO SCH (09:52)
[2023-06-16] MEDS: DOCUSATE SODIUM 100 MG CAPSULE (FP) PO SCH ×2 (09:52→22:14)
[2023-06-16] MEDS: PANTOPRAZOLE 20 MG TABLET PO SCH (09:53)
[2023-06-16 14:45] LABS: EPI CELLS 3 /uL (0-25.1); HYALINE CASTS 0 /uL (0-3.1); PH,URINE 5.5 (5.0-8.0); URINE APPEARANCE TURBID; URINE BACTERIA >9,000 /uL (0-1359); URINE BILIRUBIN 1+ (NEGATIVE); URINE COLOR ORANGE; URINE GLUCOSE (UA) NEGATIVE (NEGATIVE); URINE KETONE NEGATIVE (NEGATIVE); URINE LEUK ESTERASE 1+ (NEGATIVE); URINE NITRITE POSITIVE (NEGATIVE); URINE PROTEIN 2+ (NEGATIVE); URINE RBC 35119 /uL (0-23.9); URINE WBC 79 /uL (0-25.8)
[2023-06-16 15:00] LABS: URINE CRYSTALS NO SEEN /hpf
[2023-06-16 16:41] LABS: BASO % 0.2 % (0-2.0); HEMATOCRIT 35.5 % (32.4-45.2); HEMOGLOBIN 12.1 GM/dL (10.7-15.3); LYMPH % 10.6 % (8-40); MCHC 34.1 g/dl (32.0-36.0); MEAN CELL VOLUME 85.1 fl (80-96); MEAN PLT VOLUME 8.2 fl (7.5-11.1); MONO % 4.9 % (3.8-10.2); NEUT % 84.3 % (42.8-82.8); PLATELET COUNT 198 10^3/uL (134-434); RBC 4.17 M/mm3 (3.60-5.2); RDW 14.8 % (11.6-15.6); WHITE BLOOD COUNT 5.5 K/mm3 (4.0-10.0)
[2023-06-16] MEDS: REMDESIVIR 100 MG in SODIUM CHLORIDE 250 ML IVPB SCH (17:32)
[2023-06-16] MEDS: ATORVASTATIN CA 10 MG TABLET (FP) PO SCH (22:14)
[2023-06-17] MEDS: INSULIN SLIDING SCALE (NOVOLOG) 1 VIAL SQ SCH ×4 (07:16→22:24)
[2023-06-17] MEDS: QUEtiapine FUMARATE 25 MG TABLET PO SCH (10:09)
[2023-06-17] MEDS: DOCUSATE SODIUM 100 MG CAPSULE (FP) PO SCH ×2 (10:09→22:24)
[2023-06-17] MEDS: PANTOPRAZOLE 20 MG TABLET PO SCH (10:09)
[2023-06-17] MEDS: DEXAMETHASONE 4 MG TABLET (FP) PO SCH (10:10)
[2023-06-17] MEDS: FLUoxetine HCL 10 MG CAPSULE PO SCH (10:10)
[2023-06-17] MEDS: ENALAPRIL MALEATE 10 MG TABLET PO SCH (10:11)
[2023-06-17 10:39] LABS: BASO % 0.3 % (0-2.0); EOS % 0.9 % (0-4.5); HEMATOCRIT 36.6 % (32.4-45.2); LYMPH % 24.3 % (8-40); MCH 28.3 pg (25.7-33.7); MCHC 32.9 g/dl (32.0-36.0); MEAN CELL VOLUME 86.1 fl (80-96); MEAN PLT VOLUME 8.4 fl (7.5-11.1); MONO % 11.2 % (3.8-10.2); NEUT % 63.3 % (42.8-82.8); PLATELET COUNT 208 10^3/uL (134-434); RBC 4.25 M/mm3 (3.60-5.2); RDW 14.1 % (11.6-15.6); WHITE BLOOD COUNT 5.5 K/mm3 (4.0-10.0)
[2023-06-17 10:41] LABS: POTASSIUM 3.9 mmol/L (3.5-5.1)
[2023-06-17 10:53] LABS: BLOOD UREA NITROGEN 23.2 mg/dL (7-18); CALCIUM 9.5 mg/dL (8.5-10.1)
[2023-06-17 10:56] LABS: ALBUMIN 3.1 g/dl (3.4-5.0); CREATININE 0.5 mg/dL (0.55-1.3)
[2023-06-17 10:57] LABS: BILIRUBIN,TOTAL 0.3 mg/dL (0.2-1); TOT PROT 5.7 g/dl (6.4-8.2)
[2023-06-17] MEDS: REMDESIVIR 100 MG in SODIUM CHLORIDE 250 ML IVPB SCH (18:01)
[2023-06-17] MEDS: ATORVASTATIN CA 10 MG TABLET (FP) PO SCH (22:24)
[2023-06-18] MEDS: INSULIN SLIDING SCALE (NOVOLOG) 1 VIAL SQ SCH ×4 (06:48→22:27)
[2023-06-18] MEDS: QUEtiapine FUMARATE 25 MG TABLET PO SCH (10:28)
[2023-06-18] MEDS: PANTOPRAZOLE 20 MG TABLET PO SCH (10:29)
[2023-06-18] MEDS: FLUoxetine HCL 10 MG CAPSULE PO SCH (10:29)
[2023-06-18] MEDS: ENALAPRIL MALEATE 10 MG TABLET PO SCH (10:30)
[2023-06-18] MEDS: DOCUSATE SODIUM 100 MG CAPSULE (FP) PO SCH ×2 (10:31→22:27)
[2023-06-18] MEDS: DEXAMETHASONE 4 MG TABLET (FP) PO SCH (10:32)
[2023-06-18] MEDS: REMDESIVIR 100 MG in SODIUM CHLORIDE 250 ML IVPB SCH (17:33)
[2023-06-18] MEDS: ATORVASTATIN CA 10 MG TABLET (FP) PO SCH (22:27)
[2023-06-19 06:24] VITALS: RESP 16
[2023-06-19] MEDS: INSULIN SLIDING SCALE (NOVOLOG) 1 VIAL SQ SCH ×2 (06:48→11:04)
[2023-06-19] MEDS: DOCUSATE SODIUM 100 MG CAPSULE (FP) PO SCH (10:33)
[2023-06-19] MEDS: QUEtiapine FUMARATE 25 MG TABLET PO SCH (10:34)
[2023-06-19] MEDS: DEXAMETHASONE 4 MG TABLET (FP) PO SCH (10:34)
[2023-06-19] MEDS: PANTOPRAZOLE 20 MG TABLET PO SCH (10:35)
[2023-06-19] MEDS: FLUoxetine HCL 10 MG CAPSULE PO SCH (10:35)
[2023-06-19] MEDS: ENALAPRIL MALEATE 10 MG TABLET PO SCH (10:35)
[2023-06-19 14:23] VITALS: BP 138/54; PULSE 89; TEMP 97.6
== END 2023-06-19 16:33 | DRG 178 ==
LOC: JER 17:17 → JERBED 22:54 → J5S 06-15 01:23
PROVIDERS: ADMIT Student in an Organized Health Care Education/Training Program; ATTEND Internal Medicine
PROC: XW033E5 Introduction of Remdesivir Anti-infective into Peripheral Vein, Percutaneous Approach, New Technology Group 5 (ICD-10-PCS; principal; 2023-06-15)
DX: U07.1 COVID-19 (principal); E46 Unspecified protein-calorie malnutrition; Z68.1 Body mass index [BMI] 19.9 or less, adult; I10 Essential (primary) hypertension; E78.5 Hyperlipidemia, unspecified; E03.9 Hypothyroidism, unspecified; E11.9 Type 2 diabetes mellitus without complications; K21.9 Gastro-esophageal reflux disease without esophagitis; D64.9 Anemia, unspecified; R91.8 Other nonspecific abnormal finding of lung field; R09.02 Hypoxemia; F03.90 Unspecified dementia, unspecified severity, without behavioral disturbance, psychotic disturbance, mood disturbance, and anxiety; R31.9 Hematuria, unspecified; N20.0 Calculus of kidney
CPT/HCPCS: 0241U-QW; 36415; 71045-TC-FY; 74176-TC; 80048; 80053; 81003; 82550; 82553; 82803; 82962; 83605; 83735; 84484; 85025; 85610; 85730; 86140; 86850; 86900; 86901; 87040; 87086; 87635; 93005; 93010; 97116-GP; 99285-25; C9399; J1100

== ENCOUNTER 2024-02-23 03:28 | Inpatient (IN) | payer OTHER ==
[2024-02-23 04:04] VITALS: BMI 19.7
[2024-02-23 04:27] LABS: BASO % 0.2 % (0-2.0); EOS % 0.1 % (0-4.5); HEMATOCRIT 37.9 % (32.4-45.2); HEMOGLOBIN 12.4 GM/dL (10.7-15.3); LYMPH % 3.6 % (8-40); MCH 28.7 pg (25.7-33.7); MCHC 32.8 g/dl (32.0-36.0); MEAN CELL VOLUME 87.3 fl (80-96); MEAN PLT VOLUME 9.1 fl (7.5-11.1); MONO % 7.2 % (3.8-10.2); NEUT % 88.9 % (42.8-82.8); PLATELET COUNT 218 10^3/uL (134-434); RBC 4.34 M/mm3 (3.60-5.2); RDW 14.8 % (11.6-15.6)
[2024-02-23 04:36] LABS: VENOUS BASE EXCESS 3.5 mmol/L (-2-2); VENOUS O2 SATURATION 56.4 % (70-80); VENOUS PCO2 44.2 mmHg (38-52); VENOUS PH 7.426 (7.310-7.410)
[2024-02-23 04:47] LABS: POTASSIUM 4.3 mmol/L (3.5-5.1)
[2024-02-23 04:49] LABS: ALBUMIN 3.2 g/dl (3.4-5.0); BLOOD UREA NITROGEN 20.8 mg/dL (7-18); CALCIUM 9.5 mg/dL (8.5-10.1); MAGNESIUM 1.4 mg/dL (1.8-2.4)
[2024-02-23 04:52] LABS: CREATININE 0.5 mg/dL (0.55-1.3)
[2024-02-23 04:54] LABS: BILIRUBIN,TOTAL 0.6 mg/dL (0.2-1); TOT PROT 6.3 g/dl (6.4-8.2)
[2024-02-23] MEDS ORDERED: CEFTRIAXONE 1 GM/50 ML BAG ONE (05:01)
[2024-02-23] MEDS: CEFTRIAXONE 1 GM in DEXTROSE 5%-WATER - 100 ML IVPB ONE (05:05)
[2024-02-23] MEDS ORDERED: AZITHROMYCIN IVPB 500 MG/250 ML BAG IVPB ONE (05:21)
[2024-02-23] MEDS ORDERED: ASPIRIN 81 MG CHEWABLE TABLETS ONE (05:29)
[2024-02-23] MEDS: ASPIRIN 81 MG CHEWABLE TABLETS PO ONE (05:36)
[2024-02-23] MEDS: AZITHROMYCIN IVPB 500 MG in DEXTROSE 5%-WATER - 250 ML IVPB ONE (05:49)
[2024-02-23 05:50] LABS: INR 1.11 (0.83-1.09); PROTHROMBIN TIME (PATIENT) 12.5 SEC (9.7-13.0)
[2024-02-23 05:53] LABS: ACTIVATED PTT 26.6 SECONDS (25.2-36.5)
[2024-02-23] MEDS ORDERED: MAGNESIUM 1GM/D5W - 1 GM/100 ML IVPB IVPB ONE (06:42)
[2024-02-23] MEDS: MAGNESIUM 1GM/D5W - 1 GM/100 ML IVPB IVPB ONE (06:48)
[2024-02-23] MEDS: INSULIN ASPART SLIDING SCALE (NOVOLOG) 1 VIAL SQ SCH (09:35)
[2024-02-23] MEDS ORDERED: PANTOPRAZOLE 20 MG TABLET PO ONE (09:39)
[2024-02-23] MEDS ORDERED: FERROUS SO4 325 MG TABLET (FP) ONE (09:39)
[2024-02-23] MEDS ORDERED: DOCUSATE SODIUM 100 MG CAPSULE (FP) PO ONE (09:39)
[2024-02-23] MEDS ORDERED: ENALAPRIL MALEATE 5 MG TABLET ONE (09:39)
[2024-02-23] MEDS ORDERED: SENNOSIDES 8.6MG TABLET (FP) PO ONE (09:39)
[2024-02-23] MEDS ORDERED: TOPIRAMATE 25 MG TABLET ONE (09:39)
[2024-02-23] MEDS ORDERED: ENOXAPARIN NA (PORCINE) 60 MG/0.6 ML DISP.SYRIN SQ ONE (09:40)
[2024-02-23] MEDS: SENNOSIDES 8.6MG TABLET (FP) PO SCH (09:57)
[2024-02-23] MEDS: FLUoxetine HCL 10 MG CAPSULE PO SCH (09:57)
[2024-02-23] MEDS: PANTOPRAZOLE 20 MG TABLET PO SCH (09:57)
[2024-02-23] MEDS: FERROUS SO4 325 MG TABLET (FP) PO SCH (09:57)
[2024-02-23] MEDS: ENOXAPARIN NA (PORCINE) 60 MG/0.6 ML DISP.SYRIN SQ SCH (09:57)
[2024-02-23] MEDS: DOCUSATE SODIUM 100 MG CAPSULE (FP) PO SCH (09:57)
[2024-02-23] MEDS: metoPROLOL SUCCINATE 25 MG TAB.SR.24H (FP) PO SCH (09:58)
[2024-02-23] MEDS ORDERED: HEPARIN NA (PORCINE) 5,000 UNITS/ML 1ML VIAL SQ SCH (10:00)
[2024-02-23] MEDS: ENALAPRIL MALEATE 10 MG TABLET PO SCH (10:25)
[2024-02-23] MEDS: CINACALCET HCL 30 MG TAB (FP) PO SCH (10:28)
[2024-02-23] MEDS: ATORVASTATIN CA 10 MG TABLET (FP) PO SCH (22:09)
[2024-02-24] MEDS: LEVOTHYROXINE NA 50 MCG TABLET (FP) PO SCH (06:36)
[2024-02-24 08:39] LABS: POTASSIUM 3.7 mmol/L (3.5-5.1)
[2024-02-24 08:59] LABS: BASO % 0.2 % (0-2.0); EOS % 0.3 % (0-4.5); HEMATOCRIT 36.1 % (32.4-45.2); HEMOGLOBIN 12.1 GM/dL (10.7-15.3); LYMPH % 8.2 % (8-40); MCHC 33.4 g/dl (32.0-36.0); MEAN PLT VOLUME 8.9 fl (7.5-11.1); MONO % 8.8 % (3.8-10.2); NEUT % 82.5 % (42.8-82.8); PLATELET COUNT 258 10^3/uL (134-434); RBC 4.15 M/mm3 (3.60-5.2); RDW 14.3 % (11.6-15.6); WHITE BLOOD COUNT 9.6 K/mm3 (4.0-10.0)
[2024-02-24 09:05] LABS: BLOOD UREA NITROGEN 25.1 mg/dL (7-18)
[2024-02-24 09:06] LABS: CALCIUM 8.9 mg/dL (8.5-10.1)
[2024-02-24 09:07] LABS: MAGNESIUM 1.9 mg/dL (1.8-2.4)
[2024-02-24 09:09] LABS: CREATININE 0.4 mg/dL (0.55-1.3); PHOSPHOROUS 2.8 mg/dL (2.5-4.9)
[2024-02-24] MEDS: ASPIRIN COATED 81 MG TABLET.EC PO SCH (09:16)
[2024-02-24 10:55] LABS: EPI CELLS >36 /uL (0-25.1); HYALINE CASTS 27 /uL (0-3.1); URINE APPEARANCE CLOUDY; URINE BACTERIA 8 /uL (0-1359); URINE BILIRUBIN 1+ (NEGATIVE); URINE COLOR DK YELLOW; URINE GLUCOSE (UA) NEGATIVE (NEGATIVE); URINE KETONE 1+ (NEGATIVE); URINE LEUK ESTERASE 2+ (NEGATIVE); URINE NITRITE NEGATIVE (NEGATIVE); URINE PROTEIN 1+ (NEGATIVE); URINE RBC 704 /uL (0-23.9); URINE WBC 494 /uL (0-25.8)
[2024-02-25 07:35] LABS: BASO % 0.4 % (0-2.0); EOS % 0.4 % (0-4.5); HEMATOCRIT 38.1 % (32.4-45.2); HEMOGLOBIN 12.9 GM/dL (10.7-15.3); LYMPH % 8.9 % (8-40); MCH 29.2 pg (25.7-33.7); MCHC 33.8 g/dl (32.0-36.0); MEAN CELL VOLUME 86.6 fl (80-96); MEAN PLT VOLUME 8.3 fl (7.5-11.1); MONO % 6.8 % (3.8-10.2); NEUT % 83.5 % (42.8-82.8); PLATELET COUNT 303 10^3/uL (134-434); RDW 14.6 % (11.6-15.6); WHITE BLOOD COUNT 9.2 K/mm3 (4.0-10.0)
[2024-02-25 07:51] LABS: POTASSIUM 3.4 mmol/L (3.5-5.1)
[2024-02-25 07:56] LABS: ALBUMIN 2.8 g/dl (3.4-5.0)
[2024-02-25 07:57] LABS: BLOOD UREA NITROGEN 27.1 mg/dL (7-18)
[2024-02-25 07:58] LABS: CALCIUM 9.1 mg/dL (8.5-10.1)
[2024-02-25 07:59] LABS: CREATININE 0.5 mg/dL (0.55-1.3)
[2024-02-25 08:01] LABS: BILIRUBIN,TOTAL 0.4 mg/dL (0.2-1)
[2024-02-25] MEDS: POTASSIUM CHLORIDE ORAL LIQUID 20 MEQ/15 ML PO ONE (13:24)
[2024-02-26] MEDS: ENOXAPARIN NA (PORCINE) 40 MG/0.4 ML DISP.SYRIN SQ SCH (09:42)
[2024-02-26 13:08] LABS: POTASSIUM 4.1 mmol/L (3.5-5.1)
[2024-02-26 13:09] LABS: CALCIUM 9.8 mg/dL (8.5-10.1)
[2024-02-26 13:10] LABS: BLOOD UREA NITROGEN 26.4 mg/dL (7-18)
[2024-02-26 13:13] LABS: CREATININE 0.4 mg/dL (0.55-1.3)
[2024-02-27 07:21] LABS: HEMATOCRIT 36.7 % (32.4-45.2); HEMOGLOBIN 12.1 GM/dL (10.7-15.3); MCH 28.9 pg (25.7-33.7); MCHC 33.1 g/dl (32.0-36.0); MEAN CELL VOLUME 87.2 fl (80-96); MEAN PLT VOLUME 8.5 fl (7.5-11.1); PLATELET COUNT 288 10^3/uL (134-434); RDW 14.1 % (11.6-15.6); WHITE BLOOD COUNT 8.1 K/mm3 (4.0-10.0)
[2024-02-27 07:47] LABS: POTASSIUM 4.5 mmol/L (3.5-5.1)
[2024-02-27 07:49] LABS: CALCIUM 9.3 mg/dL (8.5-10.1)
[2024-02-27 07:50] LABS: ALBUMIN 2.7 g/dl (3.4-5.0); BLOOD UREA NITROGEN 23.6 mg/dL (7-18)
[2024-02-27 07:53] LABS: CREATININE 0.5 mg/dL (0.55-1.3)
[2024-02-27 07:54] LABS: BILIRUBIN,TOTAL 0.4 mg/dL (0.2-1); TOT PROT 5.4 g/dl (6.4-8.2)
[2024-02-27 08:54] LABS: ANISOCYTOSIS 0; MACROCYTOSIS 0
[2024-02-27 12:54] LABS: EPI CELLS 10 /uL (0-25.1); HYALINE CASTS 1 /uL (0-3.1); URINE APPEARANCE CLEAR; URINE BACTERIA 28 /uL (0-1359); URINE BILIRUBIN NEGATIVE (NEGATIVE); URINE COLOR YELLOW; URINE GLUCOSE (UA) NEGATIVE (NEGATIVE); URINE KETONE 1+ (NEGATIVE); URINE LEUK ESTERASE 1+ (NEGATIVE); URINE NITRITE NEGATIVE (NEGATIVE); URINE PROTEIN TRACE (NEGATIVE); URINE WBC 59 /uL (0-25.8)
[2024-02-27 16:56] LABS: URINE RBC NONE SEEN /uL (0-23.9)
[2024-02-27] MEDS: DOCUSATE SODIUM 100 MG CAPSULE (FP) PO SCH (22:01)
[2024-02-27] MEDS: ATORVASTATIN CA 10 MG TABLET (FP) PO SCH (22:01)
[2024-02-27] MEDS: INSULIN ASPART SLIDING SCALE (NOVOLOG) 1 VIAL SQ SCH (22:10)
[2024-02-28] MEDS: LEVOTHYROXINE NA 50 MCG TABLET (FP) PO SCH (06:45)
[2024-02-28] MEDS: FERROUS SO4 325 MG TABLET (FP) PO SCH (10:13)
[2024-02-28] MEDS: metoPROLOL SUCCINATE 25 MG TAB.SR.24H (FP) PO SCH (10:13)
[2024-02-28] MEDS: FLUoxetine HCL 10 MG CAPSULE PO SCH (10:14)
[2024-02-28] MEDS: ASPIRIN COATED 81 MG TABLET.EC PO SCH (10:14)
[2024-02-28] MEDS: PANTOPRAZOLE 20 MG TABLET PO SCH (10:15)
[2024-02-28] MEDS: CINACALCET HCL 30 MG TAB (FP) PO SCH (10:15)
[2024-02-28] MEDS: ENOXAPARIN NA (PORCINE) 40 MG/0.4 ML DISP.SYRIN SQ SCH (10:15)
[2024-02-28] MEDS: SENNOSIDES 8.6MG TABLET (FP) PO SCH (10:16)
[2024-02-28] MEDS: ENALAPRIL MALEATE 10 MG TABLET PO SCH (10:16)
[2024-02-28 14:04] VITALS: BP 122/65; PULSE 77; RESP 18; TEMP 98.4
== END 2024-02-28 17:25 | DRG 280 ==
LOC: JER 03:28 → JERBED 05:03 → J4S 18:14 → J8W 02-27 18:06
PROVIDERS: ADMIT Internal Medicine; ATTEND Internal Medicine
DX: I21.4 Non-ST elevation (NSTEMI) myocardial infarction (principal); E43 Unspecified severe protein-calorie malnutrition; Z68.1 Body mass index [BMI] 19.9 or less, adult; E03.9 Hypothyroidism, unspecified; E78.5 Hyperlipidemia, unspecified; I10 Essential (primary) hypertension; K21.9 Gastro-esophageal reflux disease without esophagitis; E11.9 Type 2 diabetes mellitus without complications; D64.9 Anemia, unspecified; R09.02 Hypoxemia
CPT/HCPCS: 0241U-QW; 36415; 71045-TC-FY; 80048; 80053; 80061; 81003; 82803; 82962; 83735; 83880; 84100; 84484; 85025; 85610; 85730; 86850; 86900; 86901; 87086; 93005; 93010; 93306-TC; 97116-GP; 97161-GP; 99285-25